=== PATIENT | female | born 1945 | race Caucasian/White ===

== ENCOUNTER 2016-08-29 10:09 | Emergency (ER) | payer MEDICARE ==
[~2016-08-29] VITALS: Ht 177.8 cm; Wt 78.6 kg
[~2016-08-29 10:09] MED LIST: CALC-51 PO; CEPH500T PO; CHOL100043 PO; HYDR-4003 PO; KLO5T PO; PRAM0.5T3 PO; PRED-508 PO; VENL75CA PO
[2016-08-29 10:12] VITALS: BP 129/75; PULSE 93; RESP 18; O2SAT 96
[2016-08-29] MEDS ORDERED: 0.9% Sodium Chloride 1,000 ML IV ONE (10:27)
--- NOTE | 2016-08-29 10:27 | ED.REPORT ---
HPI-Abd Pain F 40 and Over Date of Service Aug 29, 2016 ED Provider: Ham Burden MD 71 year old female presents to the ER referred from urgent care complaining of two days of nausea and vomiting. Currently she reports that she feels dehydrated. She states that she was at a libertarian two nights ago, and couldn't sleep after getting home around 02:00 the following day. Symptoms onset with nausea and insomnia, and dry heaving that progressed to vomiting. Vomiting bouts were so violent that she also defecated during these episodes. Patient denies hematemesis, and hematochezia. Nursing Notes Stated Complaint: NAUSEA/VOMITING Chief Complaint: Female Abdominal Pain Nursing Notes Reviewed: Yes Allergies: Coded Allergies: Sulfa (Sulfonamide Antibiotics) (Verified Allergy, Severe, Nausea,Vomiting , 02/04/16) oxycodone (Verified Allergy, Severe, Dizziness, 02/04/16) Scheduled Calcium Carbonate/Vitamin D3 (Calcium 500 + Vit D 400 Tablet) 1 Each Tablet 1 EACH PO HS Cephalexin (Cephalexin) 500 Mg Tablet 500 MG PO BID Cholecalciferol (Vitamin D3) (Vitamin D) 1,000 Unit Tablet 1,000 UNIT PO DAILY Prednisone (Deltasone) 20 Mg Tablet 20 MG PO DAILY Venlafaxine ER (Effexor XR) 75 Mg Capsule 75 MG PO DAILY Scheduled PRN Clonazepam (Clonazepam) 0.5 Mg Tablet 0.5 MG PO BID PRN PRN For Anxiety Hydrocodone-Acetaminophen 5-325 mg (Hydrocodone-Acetaminophen 5-325 mg) 1 Each Tablet 1 TABLET PO Q4H PRN PRN For Pain Ondansetron ODT (Zofran ODT) 4 Mg Tablet 4 MG PO Q4H PRN PRN For Nausea Pramipexole Dihydrochloride (Mirapex) 0.5 Mg Tablet 0.5 MG PO HS PRN PRN For Restlessness General Time Seen by MD: 10:26 Chief Complaint Nausea, Vomiting moderate Hx Obtained From: Patient Arrived By: Walk-in Sudden in Onset?: No Onset Occurred: 2 days ago Symptom Duration: Since onset Progression since Onset: Intermittent Associated with: Denies: Diarrhea (s), Hematemesis, Hematochezia Past Medical History Past Medical History 1. Abnormal glandular Papanicolau smear of cervix 2. CTS 3. Arthritis 4. Cellulitis of LLE 5. Myofascial pain 6. Glaucoma 7. Osteopenia 8. Major depression 9. Knee joint pain Past Surgical History Right knee arthroscopy Smoking History Never Smoker Ambulatory Status Independent Review of Systems Constitutional: Denies: Chills, Fever Respiratory: Denies: Non-productive cough, Shortness of breath Cardiovascular: Denies: Chest pain GI: Reports: Nausea, Vomiting, Denies: Abdominal pain, Constipation, Diarrhea, Hematemesis, Hematochezia Female: Denies: Dysuria, Flank pain Complete sys rev & neg: except as marked. Physical Exam Vital Signs Vital Signs (First) Date Time Temp Pulse Resp B/P Pulse Ox O2 Delivery O2 Flow Rate FiO2 08/29/16 10:12 36.2 93 18 129/75 96 Room Air Initial VS: Reviewed Head / Eyes: Atraumatic, Normocephalic Neck: Supple, Non-tender, Full range of motion Extremities: Vascular intact, Neuro intact, No swelling, No tenderness Skin: Warm, Dry, No cyanosis Neurologic: Alert, Oriented, Nonfocal Psychiatric: Mood/affect normal, Behavior normal, Normal thought content General/Constitutional: Awake, Alert, Well developed, Well nourished Respiratory / Chest: Breath sounds NL, Breath sounds = bilat, No respiratory distress, No rales, No rhonchi, No wheezing, No stridor Cardiovascular: Heart rate NL, Regular rhythm, Heart sounds NL, Peripheral circulation NL Abdomen: Soft, Non-tender, No guarding, No rebound, No distention Back: Inspection NL, Non-tender, No CVA tenderness ENT: Airway patent, Pharynx NL Mouth: Positive: Mucous membranes dry (Mildly) Interpretation & Diagnostics Lab Results Interpretation Result Diagram: 08/29/16 1104 08/29/16 1104 Test 08/29/16 11:04 White Blood Count 10.1th/mm3 (3.8-10.1) Red Blood Count 4.74mil/mm3 (3.90-5.20) Hemoglobin 14.0g/dL (12.0-15.6) Hematocrit 42.4% (35.0-46.0) Mean Corpuscular Volume 89.5fL (81-100) Mean Corpuscular Hemoglobin 29.5pg (27.0-35.0) Mean Corpuscular Hemoglobin Concent 33.0% (32.0-37.0) Red Cell Distribution Width 13.0% (12.3-15.4) Platelet Count 359bil/L (150-400) Neutrophils (%) (Auto) 64.6% (40-74) Lymphocytes (%) (Auto) 20.7% (14-46) Monocytes (%) (Auto) 12.7% (4-12) Eosinophils (%) (Auto) 1.2% (0-5) Basophils (%) (Auto) 0.4% (0-3) Sodium Level 138mEq/L (134-144) Potassium Level 3.3mEq/L (3.5-5.2) Chloride Level 97mEq/L (97-108) Carbon Dioxide Level 26mmol/L (18-29) Blood Urea Nitrogen 23mg/dL (8-27) Creatinine 0.89mg/dL (0.57-1.00) Estimat Glomerular Filtration Rate 90mL/min (>59) Glucose Level 87mg/dL (60-99) Calcium Level 9.3mg/dL (8.5-10.1) Total Bilirubin 0.9mg/dL (0.0-1.2) Aspartate Amino Transf (AST/SGOT) 22U/L (0-50) Alanine Aminotransferase (ALT/SGPT) 12U/L (0-32) Alkaline Phosphatase 67U/L (25-165) Total Protein 7.0g/dL (6.4-8.4) Albumin 3.8g/dL (3.4-5.0) Lipase 58U/L (13-60) Hold Nickerson Top Tube Received (Received) Re-Eval/Medical Decision Med Decision/Clinical Course In summary, the patient is a generally healthy 71-year-old female who presents with 2 days of nonbloody/non-bilious emesis as well as nonbloody diarrhea. She presents requesting IV fluids and stating that she feels dehydrated. She recently attended a libertarian where she was exposed to other individuals with similar illness. Upon arrival the patient is afebrile with stable vital signs and in no apparent distress. IV access was obtained and I administered IV fluids and IV Zofran. She reported significant symptomatic improvement. Laboratory studies were obtained as below: CBC unremarkable Chemistry notable for Potassium 3.3, otherwise unremarkable Serial abdominal examinations remained benign without any tenderness, guarding, rigidity or rebound. The presentation is not suggestive of an acute surgical intra-abdominal process. The patient tolerated a PO challenge. She stated that she felt better and was comfortable with being discharged home. I do not feel that M imaging studies are indicated at this time. She is able to orally hydrate and has been prescribed a course of Zofran. I feel that she is appropriate for discharge. Follow-up and return precautions were reviewed in detail and she verbalized understanding and agreement with the plan. Source of Hx: Old records Re-Evaluation/Progress #1: Time of Eval: 11:30 Re-Evaluation/Progress Note: Discussed plan to discharge pending lab results. Re-Evaluation/Progress #2: Time of Eval: 12:38 Re-Evaluation/Progress Note: Discussed lab results and plan to discharge. Patient is amenable to the plan. Return precautions given. Verbal discharge instructions given. All other questions addressed. Counseled Regarding: Diagnosis, Lab results, Need for follow-up, When/why to return to ED Discharge & Departure Primary Impression: Nausea & vomiting Vomiting type: unspecified Vomiting Intractability: unspecified Qualified Code: R11.2 - Nausea with vomiting, unspecified Additional Impressions: Dehydration Gastroenteritis Hypokalemia Disposition: Home Discharge Condition All VS Reviewed: Yes Condition: Stable Patient Instructions: Acute Nausea and Vomiting (DC) Additional Instructions: Thank you for seeking care at emergency room for your nausea and vomiting. Our primary goal today in the ED was to evaluate you for any life-threatening conditions. Your evaluation was reassuring. You will be discharged with a prescription for Zofran. Please take as directed for nausea. Drink lots of fluids such as Gatorade or Pedialyte. You should follow-up with your primary doctor in the next week. You should return to the ED immediately if you develop worsening vomiting, bloody vomit, bloody diarrhea, fever, or any other concerning signs or symptoms. Thank you for letting us partake in your care today. Referrals: Yasmany Oden DO (PCP) Theron Attestation Portions of this note were transcribed by Romero Goins. I, Dr. Burden, personally performed the history, physical exam and medical decision-making; I reviewed and confirmed the accuracy of the information in the transcribed note. Signed by: Theron Ennis, 08/29/2016 and 12:40 copies to: Yasmany Oden Beck O MD Aug 29, 2016 10:27 ROMERO GOINS Aug 29, 2016 10:41
[2016-08-29] MEDS ORDERED: Ondansetron 2 mg/mL 2 mL Inj IVPUSH ONE (10:30)
[2016-08-29 11:21] LABS: BASOPHILS % (AUTO) 0.4 % (0-3); EOSINOPHILS % (AUTO) 1.2 % (0-5); MONOCYTES % (AUTO) 12.7 % (4-12); Mean Corpuscular Hemoglobin 29.5 pg (27.0-35.0); Mean Corpuscular Volume 89.5 fL (81-100); NEUTROPHILS % (AUTO) 64.6 % (40-74); Platelet Count 359 bil/L (150-400)
[2016-08-29] MEDS ORDERED: ONDA4TAB9 PO (11:33)
[2016-08-29 12:40] VITALS: BP 121/76; PULSE 99; RESP 16; O2SAT 98
[2016-08-29 12:50] VITALS: BP 121/76; PULSE 99; RESP 16; O2SAT 98
== END 2016-08-29 11:34 | disposition home or self-care (01) ==
LOC: SED 10:09
DX: K52.9 Noninfective gastroenteritis and colitis, unspecified (principal); E87.6 Hypokalemia; E86.0 Dehydration; Z88.2 Allergy status to sulfonamides; Z88.5 Allergy status to narcotic agent
CPT/HCPCS: 36415; 80053; 83690; 85025; 96361; 96374; 99284; G0463; J2405; J7030

== ENCOUNTER 2017-01-11 11:05 | Observation (INO) | payer MEDICARE ==
[~2017-01-11] VITALS: Ht 177.8 cm; Wt 79.5 kg
[~2017-01-11 11:05] MED LIST changes: +ONDA4TAB9 PO
[2017-01-11 11:11] VITALS: BP 159/78; PULSE 96; O2SAT 100
--- NOTE | 2017-01-11 11:15 | ED.REPORT ---
HPI-Abd Pain F 40 and Over Date of Service Jan 11, 2017 ED Provider: History of Present Illness: vomiting since 5 am, has had stomach issues for a few weeks. [facility] is primary care. came in today because could not stop vomiting. pain is 4 /10 soft stool this am, denies diarrhea, had similiar episode in July, lasting 5 days. Resolved by itself. Nursing Notes Stated Complaint: VOMITING/ BLOOD Chief Complaint: Female Abdominal Pain Nursing Notes Reviewed: Yes Allergies: Coded Allergies: Sulfa (Sulfonamide Antibiotics) (Verified Allergy, Severe, Nausea,Vomiting , 01/12/17) oxycodone (Verified Allergy, Severe, Dizziness, 01/12/17) Scheduled Colchicine (Colchicine) 0.6 Mg Tablet 0.6 MG PO DAILY Pantoprazole DR (Pantoprazole DR) 20 Mg Tablet.dr 20 MG PO DAILY Pramipexole Dihydrochloride (Mirapex) 0.5 Mg Tablet 1-1.5 MG PO HS Venlafaxine ER (Venlafaxine ER) 75 Mg Tab.er.24 150 MG PO DAILY Scheduled PRN Albuterol Sulfate (Ventolin HFA Inhaler) 200 Puff/18 Gm Inhaler 2 PUFF INH Q4 PRN PRN For Wheezing Clonazepam (Clonazepam) 0.5 Mg Tablet 0.5 MG PO BID PRN PRN For Anxiety Hydrocodone-Acetaminophen 5-325 mg (Hydrocodone-Acetaminophen 5-325 mg) 1 Each Tablet 1 TABLET PO Q4H PRN PRN For Pain Ondansetron ODT (Zofran ODT) 4 Mg Tablet 4 MG PO Q4H PRN PRN For Nausea General Time Seen by MD: 11:15 Chief Complaint Vomiting moderate Hx Obtained From: Patient Sudden in Onset?: No Symptom Duration: Since onset Past Medical History Past Medical History 1. Abnormal glandular Papanicolau smear of cervix 2. CTS 3. Arthritis 4. Cellulitis of LLE 5. Myofascial pain 6. Glaucoma 7. Osteopenia 8. Major depression 9. Knee joint pain Past Surgical History Right knee arthroscopy Smoking History Never Smoker Social History Alcohol Use: "Social" Drug Use: Denies drug use Other Social History: Lives alone Occupation lives by self, 1 story house 01/11/2017 Ambulatory Status Independent Review of Systems Basic Review of Systems Eyes: Vision NL, No discharge Skin: No bruising, No rash, No itch Psychiatric: Normal thought content Physical Exam Vital Signs Vital Signs (First) Date Time Temp Pulse Resp B/P Pulse Ox O2 Delivery O2 Flow Rate FiO2 01/11/17 11:11 36.8 96 159/78 100 Room Air 01/11/17 13:08 16 Initial VS: Reviewed, Vital signs abnormal Head / Eyes: Atraumatic, Normocephalic, PERRL ENT: Mucous membranes moist, Conjunctiva normal, No scleral icterus Neck: Supple, Non-tender, Full range of motion Lymphatic: No lymphadenopathy Extremities: Vascular intact, Neuro intact, No swelling, No tenderness Skin: Warm, Dry, No cyanosis Neurologic: Alert, Oriented, Nonfocal Psychiatric: Mood/affect normal, Behavior normal, Normal thought content General/Constitutional: Awake, Alert, No acute distress, Well appearing, Well developed, Well hydrated Respiratory / Chest: Atraumatic, Breath sounds NL, Breath sounds = bilat Cardiovascular: Heart rate NL Heart Rate / Rhythm: Positive: Tachycardia Abdomen: Atraumatic, Soft, Non-tender Back: Atraumatic, Inspection NL, Full range of motion Interpretation & Diagnostics Lab Results Interpretation Result Diagram: 01/12/17 0513 01/12/17 0513 Test 01/11/17 10:59 01/11/17 13:23 Lactic Acid Level 1.4mmol/L (0.4-2.0) Troponin T 0.010ug/L (0.0-0.011) Pro-B-Type Natriuretic Peptide 339.7pg/mL (0-301) Hold Nickerson Top Tube Received (Received) Urine Color Straw (YELLOW) Urine Appearance Hazy (CLEAR,HAZY) Urine pH 7.5 (5.0-8.0) Urine Specific [place] 1.015 (1.003-1.035) Urine Protein Negativemg/dL (NEG,TRACE) Urine Glucose (UA) Negativemg/dL (NEGATIVE) Urine Ketones 15mg/dL (NEGATIVE) Urine Occult Blood Trace (NEGATIVE) Urine Nitrite Negative (NEGATIVE) Urine Bilirubin Negative (NEGATIVE) Urine Urobilinogen Normalmg/dL (NORMAL) Urine Leukocyte Esterase Negative (NEGATIVE) Urine RBC 0-2/hpf (0-2) Urine WBC 0-5/hpf (0-5) Urine Epithelial Cells Occasional/hpf (NONE-MOD) Urine Crystals Amorphous phosphates Urine Bacteria Few/hpf (NONE-FEW) Urine Hyaline Casts None/lpf (NONE) Urine Granular Casts None seen (NONE SEEN) Urine Waxy Casts None seen (NONE SEEN) Urine Red Blood Cell Casts None seen (NONE SEEN) Urine White Blood Cell Casts None seen (NONE SEEN) Urine Mucus None seen (None Seen) Urine Trichomonas None seen (NONE SEEN) Urine Yeast None (NONE SEEN) Urinalysis Comment None Urine Culture Reflexed Not indicated Urine Opiates Screen Negative Urine Methadone Screen Negative Urine Barbiturates Screen Negative Urine Amphetamines Screen Negative Urine Benzodiazepines Screen Negative Urine Cocaine Metabolite Screen Negative Urine Cannabinoids Screen Positive X-Ray Abdominal Interpretation PROCEDURE: X-RAY ACUTE ABDOMINAL SERIES ([id number]) INDICATIONS: 71 year-old female with vomiting and lower abdominal pain. TECHNIQUE: One view chest and two views of the abdomen were acquired. COMPARISON: [facility], CR, XR CHEST 2VW, 09/08/2015, 17:20. [facility], CR, CHEST 2VW, 01/19/2014, 16:00. FINDINGS: Surgical changes and devices: None. Chest: Lungs are clear. Heart size is normal. No pleural effusions. No pneumoperitoneum. Abdomen: Bowel gas pattern is normal. No suspicious calcifications. Scattered pelvic phleboliths are incidentally noted. Visualized solid organ contours appear normal. Bones: No suspicious bony lesions. IMPRESSION: No radiographic explanation for lower abdominal pain. Dictated by: Aris Toledo M.D. on 01/11/2017 at 12:15 Approved by: Aris Toledo M.D. on 01/11/2017 at 12:16 CT Abd / Pelvis Interpretation OCEDURE: CT ABDOMEN AND PELVIS WITH CONTRAST ([id number]) INDICATIONS: 71 year-old female with vomiting and abdominal pain. TECHNIQUE: After the administration of intravenous contrast, 5 mm thick sections acquired from the diaphragm to the symphysis. 5 mm coronal and sagittal reformats were acquired. For radiation dose reduction, the following was used: automated exposure control, adjustment of mA and/or kV according to patient size. COMPARISON: [facility], CT, CT ABD PELVIS W CON, 06/18/2015, 14:06. FINDINGS: Image quality: Excellent. ABDOMEN: Lung bases: Lung bases are clear. Heart size is normal. There is small hiatal hernia. Solid organs: Liver and spleen are normal in size and enhancement. Gallbladder wall thickness is normal. Biliary system is non dilated. Pancreas enhances normally. No adrenal nodules. Kidneys demonstrate normal size and enhancement, without hydronephrosis. Peritoneum and bowel: Bowel loops demonstrate normal wall thickness and caliber. The appendix appears normal. There is mild sigmoid colon diverticulosis. No free fluid or air. Nodes and vessels: No retroperitoneal or mesenteric adenopathy by size criteria. Aorta and inferior vena cava are normal in size. Miscellaneous: No ventral hernias. PELVIS: Genitourinary: Bladder wall thickness is normal. Uterus and left ovary appear normal in size. The right ovary is not well seen. Miscellaneous: No inguinal hernias or adenopathy. Bones: No suspicious bony lesions. No vertebral body compression fractures. There is asymmetric left hip joint degeneration. IMPRESSION: 1. No imaging explanation for abdominal pain. 2. Mild sigmoid colon diverticulosis. 3. Small retrocardiac hiatal hernia. Dictated by: Aris Toledo M.D. on 01/11/2017 at 13:21 Approved by: Aris Toledo M.D. on 01/11/2017 at 13:29 Re-Eval/Medical Decision Med Decision/Clinical Course 71 year old female presents to the ER for evualation of vomiting. Patient reports a few days of stomach upset with vomiting significantly since this am. Labs are unremarkable, x-ray is normal as is CT. Despite multiple antiemitics patient still continues with vomiting episodes. No sign of appendicitis or pancreatitis Discharge & Departure Primary Impression: Nausea & vomiting Vomiting Intractability: unspecified Disposition: ADMITTED TO HOSPITAL Referrals: Yasmany Oden DO (PCP) EDSupervising Provider for APC: Mahendra Quintanilla MD Attending Statement I discussed patient with SONAL Castaneda and independently evaluated patient and agree with plan as above. In brief 71 yo f with intractable vomiting. Possibly d /t marijuana use. Admitted to hospital. copies to: Yasmany Oden Sue ARNP Jan 11, 2017 11:15 Mahendra Quintanilla MD Jan 11, 2017 18:25 INDICATIONS: 71 year-old female with vomiting and lower abdominal pain. TECHNIQUE: One view chest and two views of the abdomen were acquired. COMPARISON: [facility], CR, XR CHEST 2VW, 09/08/2015, 17:20. [facility], CR, CHEST 2VW, 01/19/2014, 16:00. FINDINGS: Surgical changes and devices: None. Chest: Lungs are clear. Heart size is normal. No pleural effusions. No pneumoperitoneum. Abdomen: Bowel gas pattern is normal. No suspicious calcifications. Scattered pelvic phleboliths are incidentally noted. Visualized solid organ contours appear normal. Bones: No suspicious bony lesions. IMPRESSION: No radiographic explanation for lower abdominal pain. Dictated by: Aris Toledo M.D. on 01/11/2017 at 12:15 Approved by: Aris Toledo M.D. on 01/11/2017 at 12:16 CT Abd / Pelvis Interpretation OCEDURE: CT ABDOMEN AND PELVIS WITH CONTRAST ([id number]) INDICATIONS: 71 year-old female with vomiting and abdominal pain. TECHNIQUE: After the administration of intravenous contrast, 5 mm thick sections acquired from the diaphragm to the symphysis. 5 mm coronal and sagittal reformats were acquired. For radiation dose reduction, the following was used: automated exposure control, adjustment of mA and/or kV according to patient size. COMPARISON: [facility], CT, CT ABD PELVIS W CON, 06/18/2015, 14:06. FINDINGS: Image quality: Excellent. ABDOMEN: Lung bases: Lung bases are clear. Heart size is normal. There is small hiatal hernia. Solid organs: Liver and spleen are normal in size and enhancement. Gallbladder wall thickness is normal. Biliary system is non dilated. Pancreas enhances normally. No adrenal nodules. Kidneys demonstrate normal size and enhancement, without hydronephrosis. Peritoneum and bowel: Bowel loops demonstrate normal wall thickness and caliber. The appendix appears normal. There is mild sigmoid colon diverticulosis. No free fluid or air. Nodes and vessels: No retroperitoneal or mesenteric adenopathy by size criteria. Aorta and inferior vena cava are normal in size. Miscellaneous: No ventral hernias. PELVIS: Genitourinary: Bladder wall thickness is normal. Uterus and left ovary appear normal in size. The right ovary is not well seen. Miscellaneous: No inguinal hernias or adenopathy. Bones: No suspicious bony lesions. No vertebral body compression fractures. There is asymmetric left hip joint degeneration. IMPRESSION: 1. No imaging explanation for abdominal pain. 2. Mild sigmoid colon diverticulosis. 3. Small retrocardiac hiatal hernia. Dictated by: Aris Toledo M.D. on 01/11/2017 at 13:21 Approved by: Aris Toledo M.D. on 01/11/2017 at 13:29 Re-Eval/Medical Decision Med Decision/Clinical Course 71 year old female presents to the ER for evualation of vomiting. Patient reports a few days of stomach upset with vomiting significantly since this am. Labs are unremarkable, x-ray is normal as is CT. Despite multiple antiemitics patient still continues with vomiting episodes. No sign of appendicitis or pancreatitis Discharge & Departure Primary Impression: Nausea & vomiting Vomiting Intractability: unspecified Disposition: ADMITTED TO HOSPITAL Referrals: Yasmany Oden DO (PCP) EDSupervising Provider for APC: Mahendra Quintanilla MD copies to: Yasmany Oden Sue ARNP Jan 11, 2017 11:15 Mahendra Quintanilla MD Jan 11, 2017 18:25
[2017-01-11] MEDS ORDERED: 0.9% Sodium Chloride 1,000 ML IV ONE (11:25)
[2017-01-11] MEDS ORDERED: HYDROmorphone 0.5 mg/0.5 mL iSecure Syringe IVPUSH ONE (11:25)
[2017-01-11] MEDS ORDERED: Pantoprazole 4 mg/mL 10 mL Inj IVPUSH ONE (11:25)
[2017-01-11] MEDS ORDERED: Ondansetron 2 mg/mL 2 mL Inj IVPUSH ONE (11:25)
[2017-01-11] MEDS ORDERED: MetoCLOpramide 5 mg/mL 2 mL Inj IM ONE ×2 (11:55→13:15)
[2017-01-11 11:58] LABS: BASOPHILS % (AUTO) 0.2 % (0-3); EOSINOPHILS % (AUTO) 0.2 % (0-5); MONOCYTES % (AUTO) 3.8 % (4-12); Mean Corpuscular Hemoglobin 30.2 pg (27.0-35.0); Mean Corpuscular Volume 88.6 fL (81-100); NEUTROPHILS % (AUTO) 82.3 % (40-74); Platelet Count 277 bil/L (150-400)
[2017-01-11 12:10] LABS: TROPONIN T 0.01 ug/L (0.0-0.011)
[2017-01-11 12:21] LABS: Magnesium 1.9 mg/dL (1.6-2.6)
[2017-01-11] MEDS ORDERED: PYRIDOSTIGMINE BROMIDE 5 MG/ML IV ONE (13:05)
[2017-01-11 13:08] VITALS: BP 151/66; PULSE 89; RESP 16; O2SAT 97
[2017-01-11] MEDS ORDERED: Promethazine Inj 12.5 MG in Dextrose 5%-Pha MIX 50 ML IV ONE (13:15)
--- NOTE | 2017-01-11 13:17 | DRSVH ---
PROCEDURE: X-RAY ACUTE ABDOMINAL SERIES ([id number]) INDICATIONS: 71 year-old female with vomiting and lower abdominal pain. TECHNIQUE: One view chest and two views of the abdomen were acquired. COMPARISON: [facility], CR, XR CHEST 2VW, 09/08/2015, 17:20. [facility], CR , CHEST 2VW, 01/19/2014, 16:00. FINDINGS: Surgical changes and devices: None. Chest: Lungs are clear. Heart size is normal. No pleural effusions. No pneumoperitoneum. Abdomen: Bowel gas pattern is normal. No suspicious calcifications. Scattered pelvic phleboliths a re incidentally noted. Visualized solid organ contours appear normal. Bones: No suspicious bony lesions. IMPRESSION: No radiographic explanation for lower abdominal pain. Dictated by: Aris Toledo M.D. on 01/11/2017 at 12:15 Approved by: Aris Toledo M.D. on 01/11/2017 at 12:16
[2017-01-11 13:58] LABS: COLOR,URINE STRAW (YELLOW)
[2017-01-11 13:59] LABS: APPEARANCE,URINE HAZY (CLEAR,HAZY); OCCULT BLOOD,URINE TRACE (NEGATIVE); PH,URINE 7.5 (5.0-8.0); UROBILINOGEN,URINE NORMAL (NORMAL)
--- NOTE | 2017-01-11 14:30 | DRSVH ---
PROCEDURE: CT ABDOMEN AND PELVIS WITH CONTRAST ([id number]) INDICATIONS: 71 year-old female with vomiting and abdominal pain. TECHNIQUE: After the administration of intravenous contrast, 5 mm thick sections acquired from the diaphragm to the symphysis. 5 mm coronal and sagittal reformats were acquired. For radiation dose reduction, the following was used: automated exposure control, adjustment of mA and/or kV according to patient talya nicholas. COMPARISON: [facility], CT, CT ABD PELVIS W CON, 06/18/2015, 14:06. FINDINGS: Image quality: Excellent. ABDOMEN: Lung bases: Lung bases are clear. Heart size is normal. There is small hiatal hernia. Solid organs: Liver and spleen are normal in size and enhancement. Gallbladder wall thickness is no rmal. Biliary system is non dilated. Pancreas enhances normally. No adrenal nodules. Kidneys demo nstrate normal size and enhancement, without hydronephrosis. Peritoneum and bowel: Bowel loops demonstrate normal wall thickness and caliber. The appendix appea rs normal. There is mild sigmoid colon diverticulosis. No free fluid or air. Nodes and vessels: No retroperitoneal or mesenteric adenopathy by size criteria. Aorta and inferior vena cava are normal in size. Miscellaneous: No ventral hernias. PELVIS: Genitourinary: Bladder wall thickness is normal. Uterus and left ovary appear normal in size. The r ight ovary is not well seen. Miscellaneous: No inguinal hernias or adenopathy. Bones: No suspicious bony lesions. No vertebral body compression fractures. There is asymmetric le ft hip joint degeneration. IMPRESSION: 1. No imaging explanation for abdominal pain. 2. Mild sigmoid colon diverticulosis. 3. Small retrocardiac hiatal hernia. Dictated by: Aris Toledo M.D. on 01/11/2017 at 13:21 Approved by: Aris Toledo M.D. on 01/11/2017 at 13:29
[2017-01-11 17:03] VITALS: BP 158/80; PULSE 103; RESP 18; O2SAT 94
[2017-01-11] MEDS ORDERED: Ondansetron 2 mg/mL 2 mL Inj IVPUSH PRN (17:45)
[2017-01-11] MEDS ORDERED: Magnesium Sulf 2 Gm/50mL Water 2 GM in IV Premix 1 EACH IV ONE (17:50)
[2017-01-11] MEDS ORDERED: fentaNYL-PF 50 mCg/mL 2 mL Inj IVPUSH PRN (17:50)
[2017-01-11] MEDS ORDERED: MetoCLOpramide 5 mg/mL 2 mL Inj IVPUSH PRN (17:50)
--- NOTE | 2017-01-11 18:20 | PCM.HPMED ---
Subjective Date of Service Jan 11, 2017 Primary Provider: Admitting Physician: Tera Arriola MD Primary Care Physician: Yasmany Oden DO Attending Physician: Tera Arriola MD Chief Complaint: Intractable nausea vomiting History of Present Illness: 71-year-old female with a marijuana smoker, no significant GI history or previous abdominal surgery resented with intractable nausea, vomiting. Patient stated that it started after she ate buffet 4 days ago, however, unable to get more detailed history as patient dosed off frequently in the conversation. Emergency room, VSS, mildly tachy, labs showed normal wbc, poly83, all the electrolytes were grossly normal, mg1.9, lactate1.4. abd xray, CT showed no evidence of colitis, no acute findings. pt received extensive GI cocktails as Scopolamine 1.5 mg patch Ativan 1 mg Promethazine 12.5 mg IV Reglan 10 mg IM Dilaudid 0.5 mg IV push protonix 40 mg IV [id number] iv IVF pt failed to resolve symptoms, determined to admit to hospital. During the interview, pt stated that she smoked marijuana recently as her brother is visiting her from [place]. used to marijuana until 3yrs ago. Patient was constantly moving her legs, mildly drowsy, easily fell asleep, unable to get detailed hx, pt denied abdominal pain, nausea, chest pain, difficulty breathing , fever, chills at home, rash, cough or phlegm, had one diarrhea recently but having regular BM, no constipatoin. pt has been taking all her meds except colchicine and effexor Review of Systems: Pertinent positives as noted in history of present illness. All other systems were reviewed and are negative Allergies Coded Allergies: Sulfa (Sulfonamide Antibiotics) (Verified Allergy, Severe, Nausea,Vomiting , 02/04/16) oxycodone (Verified Allergy, Severe, Dizziness, 02/04/16) Home Medications Scheduled Calcium Carbonate/Vitamin D3 (Calcium 500 + Vit D 400 Tablet) 1 Each Tablet 1 EACH PO HS Cephalexin (Cephalexin) 500 Mg Tablet 500 MG PO BID Cholecalciferol (Vitamin D3) (Vitamin D) 1,000 Unit Tablet 1,000 UNIT PO DAILY Prednisone (Deltasone) 20 Mg Tablet 20 MG PO DAILY Venlafaxine ER (Effexor XR) 75 Mg Capsule 75 MG PO DAILY Scheduled PRN Clonazepam (Clonazepam) 0.5 Mg Tablet 0.5 MG PO BID PRN PRN For Anxiety Hydrocodone-Acetaminophen 5-325 mg (Hydrocodone-Acetaminophen 5-325 mg) 1 Each Tablet 1 TABLET PO Q4H PRN PRN For Pain Ondansetron ODT (Zofran ODT) 4 Mg Tablet 4 MG PO Q4H PRN PRN For Nausea Pramipexole Dihydrochloride (Mirapex) 0.5 Mg Tablet 0.5 MG PO HS PRN PRN For Restlessness PMH PMH 1. Abnormal glandular Papanicolau smear of cervix 2. CTS 3. Arthritis 4. Cellulitis of LLE 5. Myofascial pain 6. Glaucoma 7. Osteopenia 8. Major depression 9. Knee joint pain Past Surgical History Right knee arthroscopy Smoking History Never Smoker Surgical History Rt knee surgery Family History no hx of CAD Social History Hx Alcohol Use: Yes (Very rarely. 1 drink every 6 months or so) Hx Substance Use: No Hx Tobacco Use: No Smoking Status: Never Smoker Exam Vital Signs Vital Sign - Last Date Time Temp Pulse Resp B/P Pulse Ox O2 Delivery O2 Flow Rate FiO2 01/11/17 17:03 103 18 158/80 94 Room Air 01/11/17 11:11 36.8 Exam agitated, moving, drowsy no JVD, MMM, no LAD RRR, nl s1, s2 no mrg CTAB, no w,c S,ND,NT,normoactive BS+ warm, no edema, pulses 2/2 Lab and Diagnostics Result Diagram: 01/11/17 1059 01/11/17 1059 X-Rays, CTs and MRIs PROCEDURE: X-RAY ACUTE ABDOMINAL SERIES ([id number]) INDICATIONS: 71 year-old female with vomiting and lower abdominal pain. TECHNIQUE: One view chest and two views of the abdomen were acquired. COMPARISON: [facility], CR, XR CHEST 2VW, 09/08/2015, 17:20. [facility], CR, CHEST 2VW, 01/19/2014, 16:00. FINDINGS: Surgical changes and devices: None. Chest: Lungs are clear. Heart size is normal. No pleural effusions. No pneumoperitoneum. Abdomen: Bowel gas pattern is normal. No suspicious calcifications. Scattered pelvic phleboliths are incidentally noted. Visualized solid organ contours appear normal. Bones: No suspicious bony lesions. IMPRESSION: No radiographic explanation for lower abdominal pain. Dictated by: Aris Toledo M.D. on 01/11/2017 at 12:15 Approved by: Aris Toledo M.D. on 01/11/2017 at 12:16 PROCEDURE: CT ABDOMEN AND PELVIS WITH CONTRAST ([id number]) INDICATIONS: 71 year-old female with vomiting and abdominal pain. TECHNIQUE: After the administration of intravenous contrast, 5 mm thick sections acquired from the diaphragm to the symphysis. 5 mm coronal and sagittal reformats were acquired. For radiation dose reduction, the following was used: automated exposure control, adjustment of mA and/or kV according to patient size. COMPARISON: [facility], CT, CT ABD PELVIS W CON, 06/18/2015, 14:06. FINDINGS: Image quality: Excellent. ABDOMEN: Lung bases: Lung bases are clear. Heart size is normal. There is small hiatal hernia. Solid organs: Liver and spleen are normal in size and enhancement. Gallbladder wall thickness is normal. Biliary system is non dilated. Pancreas enhances normally. No adrenal nodules. Kidneys demonstrate normal size and enhancement, without hydronephrosis. Peritoneum and bowel: Bowel loops demonstrate normal wall thickness and caliber. The appendix appears normal. There is mild sigmoid colon diverticulosis. No free fluid or air. Nodes and vessels: No retroperitoneal or mesenteric adenopathy by size criteria. Aorta and inferior vena cava are normal in size. Miscellaneous: No ventral hernias. PELVIS: Genitourinary: Bladder wall thickness is normal. Uterus and left ovary appear normal in size. The right ovary is not well seen. Miscellaneous: No inguinal hernias or adenopathy. Bones: No suspicious bony lesions. No vertebral body compression fractures. There is asymmetric left hip joint degeneration. IMPRESSION: 1. No imaging explanation for abdominal pain. 2. Mild sigmoid colon diverticulosis. 3. Small retrocardiac hiatal hernia. Dictated by: Aris Toledo M.D. on 01/11/2017 at 13:21 Approved by: Aris Toledo M.D. on 01/11/2017 at 13:29 Assessment & Plan Acute, active intractable n/v, most likely CVS with excessive marijuana use, POA, exam/CT/ labs unremarkable for organic causes, pt doesn't look dehydrated, VSS, -will minimize anticholinergic, antidopaminergic as much as possible given altered MS -UDS, -zofran 4-8mg prn for n/v first, if not working, then try reglan, benadryl -continue ppi bid -NS 100cc/hr -EKG tomorrow AM [id number] on admission, monitor on telemetry -try fentanyl for pain, 12.5mcg, pt tolerated dilaudid in ED as well, monitor respiratory status closely acute encephalopathy with involuntary/voluntary limb movement, POA, could possibly be EPS from antidopaminergic, will monitor for now Chronic, stable RLS, depression, will hold off on med given MS pseudogout on Rt knee, continue home med, avoid NSAID for now dispo:Patient will be admitted with observation status with expectation of therapy for less than 2 midnights diet:clear advance as tolerate dvt ppx:LMWH Full code Time spent 65min Tera Arriola MD Jan 11, 2017 17:53
[2017-01-11] MEDS: 0.9% Sodium Chloride 1,000 ML IV SCH (18:42)
[2017-01-11 18:48] VITALS: BP 168/68; PULSE 103; RESP 18; O2SAT 97
[2017-01-11] MEDS ORDERED: Acetaminophen IV 1,000 MG in IV Premix 1 EACH IV PRN (19:30)
[2017-01-11] MEDS ORDERED: ALBU18HF INH (19:51)
[2017-01-11] MEDS ORDERED: COLC0.6T55 PO (19:59)
[2017-01-11] MEDS ORDERED: VENL150C PO (20:02)
[2017-01-11] MEDS ORDERED: FERR-83 PO (20:02)
--- NOTE | 2017-01-11 20:02 | NUR ---
Med rec incomplete Pt. is too drowsy to participate adequately in an interview. She gives half-answers, which indicate she is not taking meds as they are listed. Meds are entered as last ordered to [facility] pharmacy, which she says are her two primary pharmacies. Meds need to be verified with pt when she is more awake.
[2017-01-11 21:40] VITALS: BP 164/65; PULSE 104; RESP 22; O2SAT 96
[2017-01-11] MEDS: Pantoprazole 4 mg/mL 10 mL Inj IVPUSH SCH (21:59)
[2017-01-12 01:43] VITALS: BP 157/71; PULSE 95; RESP 20; O2SAT 100
--- NOTE | 2017-01-12 02:04 | NUR ---
Drowsy Patient is still too drowsy to answer questions for admit. Patient wakes to voice, but then quickly falls back asleep before she is able to answer questions. She just seems very tired. Will attempt to arouse her again in a short while.
--- NOTE | 2017-01-12 04:25 | NUR ---
Sleep Patient is still not awake enough to answer questions related to admission. Patient stated she was open to answering some questions and then fell back to sleep as soon as I began to ask questions again. Patient awakens to voice, but isnt able to remain alert and awake.
[2017-01-12 05:59] VITALS: BP 123/72; PULSE 97; RESP 20; O2SAT 96
[2017-01-12 06:06] LABS: BASOPHILS % (AUTO) 0.5 % (0-3); EOSINOPHILS % (AUTO) 1.3 % (0-5); MONOCYTES % (AUTO) 10.3 % (4-12); Mean Corpuscular Hemoglobin 30.2 pg (27.0-35.0); Mean Corpuscular Volume 90.4 fL (81-100); NEUTROPHILS % (AUTO) 73.5 % (40-74); Platelet Count 259 bil/L (150-400)
--- NOTE | 2017-01-12 06:20 | NUR ---
Drowsy Patient attempted to stay awake to answer admission and assessment questions, but was still unable to keep herself awake. When asked why patient was so tired, patient stated she just hadn't had much sleep lately. Care continues.
[2017-01-12] MEDS: 0.9% Sodium Chloride 1,000 ML IV SCH (06:37)
[2017-01-12 06:40] LABS: Magnesium 2.2 mg/dL (1.6-2.6); Phosphorus 3.7 mg/dL (2.5-4.9)
[2017-01-12] MEDS ORDERED: VENL75TA87 PO (09:38)
[2017-01-12] MEDS: Pantoprazole 4 mg/mL 10 mL Inj IVPUSH SCH (10:08)
--- NOTE | 2017-01-12 10:22 | PCM.DIMED ---
Discharge Instructions Date of Service Jan 12, 2017 Dates of Hospitalization Jan 11, 2017 at 17:32 Discharge Diagnosis Discharge Diagnosis Cyclic vomiting syndrome likely due to marijuana abuse probable peptic ulcer disease Medication Instructions Additional med instructions Please take Prilosec 20mg daily until you see your doctor, if you notice more dark or blood stools with any GI symptoms as nausea, stomach pain. Please return to the hospital. Diet Discharge Diet: Heart Healthy Activity Discharge Activity: No restrictions Call your provider Call your provider for: Excessive diarrhea, Other (severe abdominal pain, bloody stools) Patient Instructions Patient Instructions You were hospitalized with intractable nausea, vomiting likely due to Marijuana use. Please discontinue marijuana as we discussed to prevent future episode. Please see your doctor and likely referral to GI doctor given your dark stools Please follow medicine instruction as above Follow-up plan Please see your doctor in 2weeks Follow-up Provider: Yasmany Oden DO Follow-up with PCP in: 2 weeks Tera Arriola MD Jan 12, 2017 10:11
[2017-01-12] MEDS ORDERED: PANT20TA2 PO (10:23)
[2017-01-12] MEDS ORDERED: Venlafaxine XR 75 mg ER24 Capsule PO SCH (10:25)
[2017-01-12] MEDS ORDERED: Albuterol 2.5 mg/3 mL Inhalation Solution NEB PRN (11:00)
--- NOTE | 2017-01-12 14:01 | NUR ---
Social Work:Initial Assessment/Discharge D: EMR reviewed. Pt is a 71 y/o female admitted for vomiting per H&P. URIEL met with pt at bedside to conduct initial assessment. Pt was alert and oriented x3. SW explained role and wrote phone number on white board. Pt gave verbal consent to contact her son (Osei Epperson, ) for discharge planning. URIEL confirmed pt has completed DPOA/advanced directive ppw and encouraged pt to provide a copy to the hospital. Pt has no hx of or a SNF. Pt does not have LT insurance or VA benefits. Pt is independent with ADLs. Pt does not own or use any DME. Pt drives. Pt is independent at baseline. Pt lives at home alone in [place]. Pt will provide transport home via POV when pt is medically stable. URIEL does not anticipate any discharge needs at this time but will continue to follow if needs arise. A: Pt who is independent at baseline P: Pt will provide transport home via POV when pt is medically stable. URIEL does not anticipate any discharge needs at this time but will continue to follow if needs arise. GRACIELA Solo Addendum: 01/12/17 at 1404 by HERMELINDA TINEO Amended: Links added.
--- NOTE | 2017-01-12 14:23 | NUR ---
SERG explained and signed. Copy of ULRICH given to pt.
--- NOTE | 2017-01-12 15:05 | NUR ---
DC Pt leaves to home with self. Pt ambulating independently with steady gait. All discharge instruction in hand and understood per pt. Denies CP, SOB. Care discontinues
--- NOTE | 2017-01-14 14:41 | PCM.DC.MED ---
Discharge Summary Date of Service Jan 12, 2017 Dates of Hospitalization Date of Hospital Admission Jan 11, 2017 at 17:32 Date of Discharge: Jan 12, 2017 Providers: Admitting Physician: Tera Frost MD Primary Care Physician: Yasmany Odne DO Attending Physician: Tera Frost MD Diagnosis at Time of Discharge Diagnosis at Time of Discharge acute dx Cyclic vomiting syndrome likely due to marijuana abuse, probable peptic ulcer disease Acute encephalopathy with involuntary/voluntary limb movement, could possibly be EPS from antidopaminergic, Chronic dx RLS, depression, pseudogout on Rt knee Procedures XRay, CTs & MRIs PROCEDURE: X-RAY ACUTE ABDOMINAL SERIES ([id number]) INDICATIONS: 71 year-old female with vomiting and lower abdominal pain. TECHNIQUE: One view chest and two views of the abdomen were acquired. COMPARISON: [facility], CR, XR CHEST 2VW, 09/08/2015, 17:20. [facility], CR, CHEST 2VW, 01/19/2014, 16:00. FINDINGS: Surgical changes and devices: None. Chest: Lungs are clear. Heart size is normal. No pleural effusions. No pneumoperitoneum. Abdomen: Bowel gas pattern is normal. No suspicious calcifications. Scattered pelvic phleboliths are incidentally noted. Visualized solid organ contours appear normal. Bones: No suspicious bony lesions. IMPRESSION: No radiographic explanation for lower abdominal pain. Dictated by: Aris Toledo M.D. on 01/11/2017 at 12:15 Approved by: Aris Toledo M.D. on 01/11/2017 at 12:16 PROCEDURE: CT ABDOMEN AND PELVIS WITH CONTRAST ([id number]) INDICATIONS: 71 year-old female with vomiting and abdominal pain. TECHNIQUE: After the administration of intravenous contrast, 5 mm thick sections acquired from the diaphragm to the symphysis. 5 mm coronal and sagittal reformats were acquired. For radiation dose reduction, the following was used: automated exposure control, adjustment of mA and/or kV according to patient size. COMPARISON: [facility], CT, CT ABD PELVIS W CON, 06/18/2015, 14:06. FINDINGS: Image quality: Excellent. ABDOMEN: Lung bases: Lung bases are clear. Heart size is normal. There is small hiatal hernia. Solid organs: Liver and spleen are normal in size and enhancement. Gallbladder wall thickness is normal. Biliary system is non dilated. Pancreas enhances normally. No adrenal nodules. Kidneys demonstrate normal size and enhancement, without hydronephrosis. Peritoneum and bowel: Bowel loops demonstrate normal wall thickness and caliber. The appendix appears normal. There is mild sigmoid colon diverticulosis. No free fluid or air. Nodes and vessels: No retroperitoneal or mesenteric adenopathy by size criteria. Aorta and inferior vena cava are normal in size. Miscellaneous: No ventral hernias. PELVIS: Genitourinary: Bladder wall thickness is normal. Uterus and left ovary appear normal in size. The right ovary is not well seen. Miscellaneous: No inguinal hernias or adenopathy. Bones: No suspicious bony lesions. No vertebral body compression fractures. There is asymmetric left hip joint degeneration. IMPRESSION: 1. No imaging explanation for abdominal pain. 2. Mild sigmoid colon diverticulosis. 3. Small retrocardiac hiatal hernia. Dictated by: Aris Toledo M.D. on 01/11/2017 at 13:21 Approved by: Aris Toledo M.D. on 01/11/2017 at 13:29 Brief History 71-year-old female with a marijuana smoker, no significant GI history or previous abdominal surgery resented with intractable nausea, vomiting. Patient stated that it started after she ate buffet 4 days ago, however, unable to get more detailed history as patient dosed off frequently in the conversation. Emergency room, VSS, mildly tachy, labs showed normal wbc, poly83, all the electrolytes were grossly normal, mg1.9, lactate1.4. abd xray, CT showed no evidence of colitis, no acute findings. pt received extensive GI cocktails as Scopolamine 1.5 mg patch Ativan 1 mg Promethazine 12.5 mg IV Reglan 10 mg IM Dilaudid 0.5 mg IV push protonix 40 mg IV [id number] iv IVF pt failed to resolve symptoms, determined to admit to hospital. During the interview, pt stated that she smoked marijuana recently as her brother is visiting her from [place]. used to marijuana until 3yrs ago. Patient was constantly moving her legs, mildly drowsy, easily fell asleep, unable to get detailed hx, pt denied abdominal pain, nausea, chest pain, difficulty breathing , fever, chills at home, rash, cough or phlegm, had one diarrhea recently but having regular BM, no constipatoin. pt has been taking all her meds except colchicine and effexor Hospital Course acute dx intractable n/v, most likely CVS with excessive marijuana use, Exam/CT/labs unremarkable for organic causes, pt doesn't look dehydrated, VS were stable. UDS showed marijuana. patient was initially very confused with excessive anticholinergic, antidopaminergic given in ED, but returned to normal on next day. Pt tolerated diet well, remained asymptomatic, deemed safe for d/ c. Pt was strongly encouraged to stop smoking Marijuana completely, seemed to understand. Pt will follow up with PCP in 2week.s acute encephalopathy with involuntary/voluntary limb movement, could possibly be EPS from antidopaminergic, briefly on admission but resolved. Chronic dx RLS, depression, held given MS as above pseudogout on Rt knee, not active Exam Vital Signs (Last) Date Time Temp Pulse Resp B/P Pulse Ox O2 Delivery O2 Flow Rate FiO2 01/12/17 05:59 37.0 97 20 123/72 96 Room Air Exam comfortable no JVD, MMM, no LAD RRR, nl s1, s2 no mrg CTAB, no w,c S,ND,NT,normoactive BS+ warm, no edema, pulses 2/2 Test 01/11/17 10:59 01/11/17 13:23 01/12/17 03:25 01/12/17 05:13 Lactic Acid Level 1.4mmol/L (0.4-2.0) Troponin T 0.010ug/L (0.0-0.011) Pro-B-Type Natriuretic Peptide 339.7pg/mL (0-301) Hold Nickerson Top Tube Received (Received) Urine Color Straw (YELLOW) Urine Appearance Hazy (CLEAR,HAZY) Urine pH 7.5 (5.0-8.0) Urine Specific [place] 1.015 (1.003-1.035) Urine Protein Negativemg/dL (NEG,TRACE) Urine Glucose (UA) Negativemg/dL (NEGATIVE) Urine Ketones 15mg/dL (NEGATIVE) Urine Occult Blood Trace (NEGATIVE) Urine Nitrite Negative (NEGATIVE) Urine Bilirubin Negative (NEGATIVE) Urine Urobilinogen Normalmg/dL (NORMAL) Urine Leukocyte Esterase Negative (NEGATIVE) Urine RBC 0-2/hpf (0-2) Urine WBC 0-5/hpf (0-5) Urine Epithelial Cells Occasional/hpf (NONE-MOD) Urine Crystals Amorphous phosphates Urine Bacteria Few/hpf (NONE-FEW) Urine Hyaline Casts None/lpf (NONE) Urine Granular Casts None seen (NONE SEEN) Urine Waxy Casts None seen (NONE SEEN) Urine Red Blood Cell Casts None seen (NONE SEEN) Urine White Blood Cell Casts None seen (NONE SEEN) Urine Mucus None seen (None Seen) Urine Trichomonas None seen (NONE SEEN) Urine Yeast None (NONE SEEN) Urinalysis Comment None Urine Culture Reflexed Not indicated Urine Opiates Screen Negative Urine Methadone Screen Negative Urine Barbiturates Screen Negative Urine Amphetamines Screen Negative Urine Benzodiazepines Screen Negative Urine Cocaine Metabolite Screen Negative Urine Cannabinoids Screen Positive Hold Urine Received (Received) White Blood Count 13.1th/mm3 (3.8-10.1) Red Blood Count 3.64mil/mm3 (3.90-5.20) Hemoglobin 11.0g/dL (12.0-15.6) Hematocrit 32.9% (35.0-46.0) Mean Corpuscular Volume 90.4fL (81-100) Mean Corpuscular Hemoglobin 30.2pg (27.0-35.0) Mean Corpuscular Hemoglobin Concent 33.4% (32.0-37.0) Red Cell Distribution Width 12.6% (12.3-15.4) Platelet Count 259bil/L (150-400) Neutrophils (%) (Auto) 73.5% (40-74) Lymphocytes (%) (Auto) 14.2% (14-46) Monocytes (%) (Auto) 10.3% (4-12) Eosinophils (%) (Auto) 1.3% (0-5) Basophils (%) (Auto) 0.5% (0-3) Sodium Level 143mEq/L (134-144) Potassium Level 3.6mEq/L (3.5-5.2) Chloride Level 105mEq/L (97-108) Carbon Dioxide Level 27mmol/L (18-29) Blood Urea Nitrogen 14mg/dL (8-27) Creatinine 0.76mg/dL (0.57-1.00) Estimat Glomerular Filtration Rate 108mL/min (>59) Glucose Level 96mg/dL (60-99) Calcium Level 8.8mg/dL (8.5-10.1) Phosphorus Level 3.7mg/dL (2.5-4.9) Magnesium Level 2.2mg/dL (1.6-2.6) Total Bilirubin 0.7mg/dL (0.0-1.2) Aspartate Amino Transf (AST/SGOT) 19U/L (0-50) Alanine Aminotransferase (ALT/SGPT) 11U/L (0-32) Alkaline Phosphatase 66U/L (25-165) Total Protein 5.8g/dL (6.4-8.4) Albumin 3.4g/dL (3.4-5.0) Discharge Medications Discharge Medications Colchicine (Colchicine) 0.6 Mg Tablet 0.6 MG PO DAILY (Reported) Pantoprazole DR (Pantoprazole DR) 20 Mg Tablet.dr 20 MG PO DAILY Prescribed by: TERA FROST MD Pramipexole Dihydrochloride (Mirapex) 0.5 Mg Tablet 1-1.5 MG PO HS (Reported) Venlafaxine ER (Venlafaxine ER) 75 Mg Tab.er.24 150 MG PO DAILY (Reported) As needed Albuterol Sulfate (Ventolin HFA Inhaler) 200 Puff/18 Gm Inhaler 2 PUFF INH Q4 PRN PRN For Wheezing (Reported) Clonazepam (Clonazepam) 0.5 Mg Tablet 0.5 MG PO BID PRN PRN For Anxiety ( Reported) Hydrocodone-Acetaminophen 5-325 mg (Hydrocodone-Acetaminophen 5-325 mg) 1 Each Tablet 1 TABLET PO Q4H PRN PRN For Pain (Reported) Ondansetron ODT (Zofran ODT) 4 Mg Tablet 4 MG PO Q4H PRN PRN For Nausea Prescribed by: CARLEE NG MD Additional med instructions Please take Prilosec 20mg daily until you see your doctor, if you notice more dark or blood stools with any GI symptoms as nausea, stomach pain. Please return to the hospital. Followup Plan Disposition: home Follow-up plan Please see your doctor in 2weeks Discharge Diet: Heart Healthy Discharge Activity: No restrictions Patient Instructions You were hospitalized with intractable nausea, vomiting likely due to Marijuana use. Please discontinue marijuana as we discussed to prevent future episode. Please see your doctor and likely referral to GI doctor given your dark stools Please follow medicine instruction as above Follow-up Provider: Yasmany Oden DO Follow-up with PCP in: 2 weeks Time spent 65min Tera Frost MD Jan 12, 2017 16:50
== END 2017-01-12 15:00 | disposition home or self-care (01) ==
LOC: SED 11:05 → OSC 17:32
PROVIDERS: ADMIT Internal Medicine; ATTEND Internal Medicine
DX: R11.2 Nausea with vomiting, unspecified (principal); G93.40 Encephalopathy, unspecified; F12.10 Cannabis abuse, uncomplicated; M19.90 Unspecified osteoarthritis, unspecified site; F32.9 Major depressive disorder, single episode, unspecified; G25.81 Restless legs syndrome; M11.261 Other chondrocalcinosis, right knee; Z79.52 Long term (current) use of systemic steroids; R25.8 Other abnormal involuntary movements
CPT/HCPCS: 36415; 74022; 74177; 80053; 81000; 82274; 83605; 83735; 83880; 84100; 84484; 85025; 87040; 87633; 87641; 93005; 96361; 96372; 96374; 96375; 96376; 99285; A4300; G0378; G0463; G0480; J1170; J1650; J2060; J2405; J2550; J2765; J7030; Q9967

== ENCOUNTER 2017-01-18 14:23 | Day surgery (SDC) | payer MEDICARE ==
[~2017-01-18] VITALS: Ht 177.8 cm; Wt 76.0 kg
[~2017-01-18 14:23] MED LIST changes: +0.9% Sodium Chloride 1,000 ML IV PRN; +ALBU18HF INH; +COLC0.6T55 PO; +FERR-83 PO; +PANT20TA2 PO; +Sodium Chloride LOK Flush 10 mL Syringe IV PRN; +VENL150C PO; +VENL75TA87 PO; +fentaNYL-PF 50 mCg/mL 2 mL Inj IVPUSH PRN
[2017-01-18 15:38] VITALS: BP 112/64; PULSE 92; RESP 16; O2SAT 100
--- NOTE | 2017-01-18 16:57 | PCM.ENDEGD ---
EGD Date of Service: Jan 18, 2017 Physician Alfred Blair MD Pre Procedure Diagnosis: Nausea Post Procedure Dx & Findings: Esophagitis gastritis Procedure Esophagogastroduodenoscopy PROCEDURE IN DETAIL: After proper sedation, Olympus video endoscope was inserted into patient's mouth and esophagus was successfully intubated. Scope introduced esophagus. Esophagus showed normal shiny whitish mucosa consistent with squamous cell component. Z line was irritated with redness and mild edema at 45 cm from the incisors. Biopsies are obtained. Scope further advanced to the stomach. Patient had multiple fundic polyps from the body of the stomach proximal to the proximal fundus. Sizes ranged from 1 mm to probably about 6 mm. Sampling biopsies obtained. In the antrum, some redness edema atrophy noted mild. Biopsies obtained. Cardia fundus body antrum pylorus were all visualized. Retroflexion was done. Stomach was easily inflated and deflatable using air. Scope further advanced to the distal duodenum. Duodenum revealed normal villous structures with normal appearing folds without any mass ulcer erosion. Impression Esophagitis Gastritis Fundic polyps Recommendation Prilosec 20 mg once a day Presedation Assessment Risks and Benefits Informed consent was obtained from the patient after all risks and benefits including but not limited to drug reaction, infection, pain, bleeding, perforation, as well as alternatives were discussed. Patient monitoring Continuous pulse oximetry, cardiac monitoring, blood pressure monitoring, IV access, and oxygen at 2L per nasal cannula. Periprocedural Fentanyl: Fentanyl 100mcg Incrementally Midazolam: Midazolam 6mg Incrementally Complications There were no periprocedural complications identified. Post Procedure Plan Post Procedure Recommendations 1. Restrict activities today. 2. Resume normal activities in the morning. 3. Resume medications. 4. GERD behavioral modification: - Avoid fatty, acidic, spicy, large meals - Do not lie down after meals - Do not eat or drink anything for at least 2 1/2 hours before going to bed at night - Discontinue tobacco and alcohol - Decrease or avoid caffeine - Avoid chocolate and mints - Decrease weight - Avoid aspirin and non steroidal anti-inflammatory agents (NSAID) such as Aleve, Advil, Mobic, Naproxen, Ibuprofen, etc 5. Add proton pump inhibitor. Take 30 minutes before 1st meal of the day. 6. Patient informed of normal post procedure side effects as bloating, drowsiness, blood streaking in the stool 7. If gastric biopsy reveal H.pylori, continue with appropriate treatment 8. If small bowel biopsy reveals celiac, continue with appropriate treatment 9. Please don't hesitate to call me with any questions Alfred Blair MD Jan 18, 2017 16:57
[2017-01-18 17:24] VITALS: BP 117/63; PULSE 90; RESP 17; O2SAT 100
--- NOTE | 2017-01-22 14:33 | PATH ---
SURGICAL PATHOLOGY Attending Physician:Alfred Blair M.D. CASE STATUS: Signed Out PATIENT NAME: DEBORAH FUNK I. PID: [id number] : 1945 DATE COLLECTED:01/18/2017 00:00 SPECIMEN: 1: Gastric, Biopsy 2: Stomach, Polyp, Biopsy 3: Esophagus, Biopsy CLINICAL HISTORY: 1). GASTRIC BIOPSY, RULE OUT H.PYLORI 2). FUNDAL POLYPS, RULE OUT H.PYLORI 3). DISTAL ESOPHAGUS BIOPSY FINAL DIAGNOSIS: 1.GASTRIC BIOPSY: GASTRIC CORPUS WITH MILD CHRONIC GASTRITIS. Negative for Helicobacter organisms. Negative for intestinal metaplasia. No evidence of dysplasia or malignancy. 2.FUNDAL POLYPS: FUNDIC GLAND POLYPS. Negative for Helicobacter organisms. Negative for intestinal metaplasia. No evidence of dysplasia or malignancy. 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 Negative for intestinal metaplasia. No evidence of dysplasia or malignancy. ICD10 D13.1 K29.70 GROSS DESCRIPTION: The specimens are received in formalin, labeled with the patient's name and sublabeled as the following: (1) gastric biopsies; (2) fundal polyp; (3) distal esophagus biopsy. (1) The specimen consists of a fragment of ludwig-white, glistening, rubbery, semi-translucent tissue (0.4 x 0.2 x 0.1 cm). Section code: (1A) intact tissue. Specimen entirely submitted. (2) The specimen consists of multiple fragments of ludwig-white, glistening, rubbery, semi-translucent tissue (0.5 x 0.3 x 0.2 cm in aggregate). Section code: (2A) tissue. Specimen entirely submitted. (3) The specimen consists of a fragment of morgan-white, glistening, semi-translucent tissue (0.5 x 0.4 x 0.1 cm). Section code: (3A) intact tissue. Specimen entirely submitted. ([id number]) MICRO DESCRIPTION: See diagnosis. ICD-9 CODES: CPT CODES: 1: 05497 2: 19443 3: 09082 Electronically Signed Out Marco A Colbert MD [facility] [address] [place] [address], [place] [address] Technical component performed at [facility], [address], [place], [address]
== END 2017-01-18 23:59 | disposition home or self-care (01) ==
LOC: END 14:23
PROVIDERS: ATTEND Internal Medicine
DX: K29.50 Unspecified chronic gastritis without bleeding (principal); K20.9 Esophagitis, unspecified; K31.7 Polyp of stomach and duodenum; K44.9 Diaphragmatic hernia without obstruction or gangrene; K57.30 Diverticulosis of large intestine without perforation or abscess without bleeding; R11.2 Nausea with vomiting, unspecified; M19.90 Unspecified osteoarthritis, unspecified site; M48.06 Spinal stenosis, lumbar region; F32.9 Major depressive disorder, single episode, unspecified
CPT/HCPCS: 43239; 99153; G0500; J2250; J3010; J7030